=== PATIENT | male | born 1985 | race Caucasian/White ===

== ENCOUNTER 2019-11-19 20:51 | Emergency (ER) | payer MEDICAID ==
[~2019-11-19] VITALS: Ht 175.3 cm; Wt 117.9 kg
[2019-11-19 21:05] VITALS: BP 133/70
--- NOTE | 2019-11-19 21:05 | NUR ---
PT AMBULATED INTO ER. PLACED IN WHEEL CHAIR INTO ER AND PUT ON OF IN BECKWITH.
--- NOTE | 2019-11-19 21:26 | NUR ---
PT WHEEL CHAIR ASSISTED TO BED 3. AMBULATED FROM CHAIR TO BED.
--- NOTE | 2019-11-19 21:35 | NUR ---
PT ASSSESSMENT COMPLETE. PT ATTACHED TO MONITORING SYSTEM. BEDRAIL X2 UP. WILL CONTINUE TO MONITOR
--- NOTE | 2019-11-19 21:35 | NUR ---
DR CALZADA EVALUATING PT AT BEDSIDE
[2019-11-19] MEDS ORDERED: PANTOPRAZOLE 40 MG INJ VIAL IVP ONE (21:55)
[2019-11-19] MEDS ORDERED: ONDANSETRON 4 MG/2 ML VIAL IVP ONE (21:55)
[2019-11-19] MEDS ORDERED: NACL 0.9% 1,000 ML IV ONE (21:55)
--- NOTE | 2019-11-19 22:05 | NUR ---
TO XRAY VIA W/C
[2019-11-19 22:16] LABS: BASOPHILS % (AUTO) 0.4 % (0.0-2.0); EOSINOPHILS # (AUTO) 0.3 K/uL (0-0.4); EOSINOPHILS % (AUTO) 2.5 % (0.0-4.0); HEMOGLOBIN 14.2 g/dL (12.0-18.0); LYMPHOCYTES # (AUTO) 1.6 K/uL (2.0-11.5); LYMPHOCYTES % (AUTO) 14.7 % (20.5-51.1); MEAN CORPUSCULAR HEMOGLOBIN 29 pg (27-31); MEAN CORPUSCULAR HGB CONC 33 g/dL (33-37); MEAN CORPUSCULAR VOLUME 86.5 fL (80-94); MONOCYTES # (AUTO) 1.1 K/uL (0.8-1.0); NEUTROPHILS # (AUTO) 8.1 K/uL (1.8-7.7); NEUTROPHILS % (AUTO) 72.4 % (42.2-75.2); PLATELET COUNT (AUTO) 305 K/uL (140-450); RED BLOOD CELL COUNT(AUTO) 4.96 MIL/uL (4.20-6.10); RED CELL DISTRIBUTION WIDTH 13.9 % (11.6-13.7); WHITE BLOOD COUNT (AUTO) 11.2 K/uL (4.8-10.8)
[2019-11-19 22:26] LABS: CARBON DIOXIDE 24.2 mmol/L (21-32); CHLORIDE 107 mmol/L (98-107); CREATININE 0.9 mg/dL (0.7-1.3); GFR ARICAN-AMERICAN 123 mL/min (>90); GLUCOSE 91 mg/dL (74-106); POTASSIUM 3.2 mmol/L (3.5-5.1); SODIUM SERUM 144 mmol/L (136-145); UREA NITROGEN, BLOOD 24 mg/dL (7-18)
--- NOTE | 2019-11-19 22:34 | NUR ---
EKG PERFORMED AT BEDSIDE
[2019-11-19 22:45] LABS: ALBUMIN 3.9 g/dL (3.4-5.0); ASPARTATE AMINOTRANSFERASE 27 U/L (15-37); TOTAL BILIRUBIN 0.7 mg/dL (0.0-1.0)
[2019-11-19 22:46] LABS: ACETAMINOPHEN < 0.5 ug/ml (10-30); SALICYLATE < 2.8 mg/dL (2.8-20.0)
--- NOTE | 2019-11-19 23:11 | NUR ---
URINE SPECIMEN COLLECTED
[2019-11-19 23:33] LABS: BARBITURATE, URINE NEG. ng/ml (NEG <=200); BENZODIAZEPINE, URINE NEG. ng/mL (NEG <=200); CANNABINOID, URINE NEG. ng/mL (NEG <=50); COCAINE, URINE NEG. ng/mL (NEG <=300); OPIATE, URINE NEG. ng/mL (NEG <=2000); PHENCYCLIDINE SCREEN,URINE NEG. ng/mL (NEG <=25)
--- NOTE | 2019-11-20 00:08 | NUR ---
PT SEEN WITH EYES CLOSED. VISBLE CHEST RISE AND FALL NOTED. WILL CONTINUE TO MONITOR.
--- NOTE | 2019-11-20 00:30 | NUR ---
PT ROADTESTED. STEADY GAIT OBSERVED.
[2019-11-20 00:45] VITALS: BP 107/58
== END 2019-11-20 00:52 | disposition home or self-care (01) ==
LOC: MED 20:51 → EDBD 20:51 → MED 11-20 00:52
DX: F15.10 Other stimulant abuse, uncomplicated (principal); Z98.890 Other specified postprocedural states; Z88.5 Allergy status to narcotic agent; Z88.6 Allergy status to analgesic agent; Z59.0 Homelessness
CPT/HCPCS: 36415; 74022; 80053; 80305; 85025; 93005; 96361; 96374; 96375; 99284; C9113; G0480; G0482; J2405; J7030

== ENCOUNTER 2020-08-16 23:05 | Emergency (ER) | payer SELFPAY ==
[~2020-08-16] VITALS: Ht 172.7 cm; Wt 95.3 kg
--- NOTE | 2020-08-16 23:12 | NUR ---
BIB WHEELCHAIR TO ER BED 5
[2020-08-16 23:19] VITALS: BP 129/79
--- NOTE | 2020-08-16 23:19 | NUR ---
DR. LYLES AT BEDSIDE EVALUATING PT.
--- NOTE | 2020-08-16 23:41 | NUR ---
XRAY AT BEDSIDE.
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
[2020-08-17] MEDS: KETOROLAC 60 MG/2 ML VIAL IM ONE (00:08)
[2020-08-17] MEDS ORDERED: LIDOCAINE/EPI 1% 1:100000 20 ML VIAL INJ ONE (01:19)
[2020-08-17] MEDS: LIDOCAINE/EPI 1% 1:100000 20 ML VIAL INJ ONE (01:35)
--- NOTE | 2020-08-17 04:07 | NUR ---
PT ASLEEP, HOB ELEVATED. CHEST RISE AND FALL NOTED. NO NEW CONCERNS AT THIS TIME. PT ATTACHED TO NET APPLICATION SUPPORT SPECIALIST AND PULSE OXIMETRY. BED LOCKED AND IN LOWEST POSITION, SIDE RAIL UPX1. WILL CONTINUE TO MONITOR.
[2020-08-17 05:11] VITALS: BP 133/79
--- NOTE | 2020-08-17 05:12 | NUR ---
Patient discharged with v/s stable. Written and verbal after care instructions given and explained. Patient verbalized understanding. Ambulatory with steady gait. All questions addressed prior to discharge. Advised to follow up with PMD.
== END 2020-08-17 05:05 | disposition home or self-care (01) ==
LOC: MED 23:05
DX: S51.812A Laceration without foreign body of left forearm, initial encounter (principal); S80.10XA Contusion of unspecified lower leg, initial encounter; Z88.6 Allergy status to analgesic agent; Z88.5 Allergy status to narcotic agent; Z88.8 Allergy status to other drugs, medicaments and biological substances; X58.XXXA Exposure to other specified factors, initial encounter; Y93.34 Activity, bungee jumping; Y92.89 Other specified places as the place of occurrence of the external cause; Y99.8 Other external cause status
CPT/HCPCS: 12001; 73060; 73090; 73590; 90471; 90715; 96372; 99284; J1885; J2001; Q0092

== ENCOUNTER 2020-08-25 14:10 | Emergency (ER) | payer SELFPAY ==
[~2020-08-25] VITALS: Ht 174 cm; Wt 100.7 kg
[2020-08-25 14:13] VITALS: BP 141/81
== END 2020-08-25 14:51 | disposition left against medical advice (07) ==
LOC: MED 14:10
DX: S41.112D Laceration without foreign body of left upper arm, subsequent encounter (principal); X58.XXXD Exposure to other specified factors, subsequent encounter; Z53.21 Procedure and treatment not carried out due to patient leaving prior to being seen by health care provider

== ENCOUNTER 2021-01-03 09:27 | Emergency (ER) | payer MEDICAID ==
[~2021-01-03] VITALS: Ht 175.3 cm; Wt 95.3 kg
[2021-01-03 09:28] VITALS: BP 127/69
--- NOTE | 2021-01-03 09:28 | NUR ---
BIBA TAKEN TO BED 4
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
[2021-01-03] MEDS ORDERED: PENI-321 PO (09:38)
--- NOTE | 2021-01-03 09:45 | NUR ---
DR. ELIAS IS EVALUATING PATIENT AT BEDSIDE.
--- NOTE | 2021-01-03 09:58 | NUR ---
SIGNATURE OBTAINED FOR TDAP VACCINE CONSENT FORM.
[2021-01-03] MEDS ORDERED: MORPHINE SULFATE 2 MG/ML SYR IVP ONE (10:15)
[2021-01-03] MEDS ORDERED: ONDANSETRON 4 MG/2 ML VIAL IVP ONE (10:15)
[2021-01-03] MEDS ORDERED: MORPHINE SULFATE 2 MG/ML SYR ONE (10:16)
--- NOTE | 2021-01-03 10:25 | NUR ---
[facility] TRANSPORTED PATIENT VIA GURNEY TO RAD. ACCOMPANIED BY RN PER DR. ELIAS REQUEST AFTER MORPHINE ADMINISTRATION.
--- NOTE | 2021-01-03 11:15 | NUR ---
Pt returned from x-ray.
--- NOTE | 2021-01-03 11:45 | NUR ---
DR. ELIAS AT BEDSIDE
--- NOTE | 2021-01-03 11:58 | NUR ---
EMT AT BEDSIDE FOR WOUND CARE.
--- NOTE | 2021-01-03 12:00 | NUR ---
PT PROVIDED WITH XL SHIRT BY SECURITY STAFF.
--- NOTE | 2021-01-03 12:10 | NUR ---
PT PROVIDED WITH MEGAN CRACKERS, JUICE, JELLO, PUDDING PER REQUEST PRIOR TO DISCHARGE.
[2021-01-03 12:15] VITALS: BP 151/72
== END 2021-01-03 12:15 | disposition home or self-care (01) ==
LOC: MED 09:27
DX: S80.11XA Contusion of right lower leg, initial encounter (principal); S80.12XA Contusion of left lower leg, initial encounter; S00.83XA Contusion of other part of head, initial encounter; S50.811A Abrasion of right forearm, initial encounter; S50.812A Abrasion of left forearm, initial encounter; S00.01XA Abrasion of scalp, initial encounter; J45.909 Unspecified asthma, uncomplicated; Z88.5 Allergy status to narcotic agent; Z88.6 Allergy status to analgesic agent; Z88.8 Allergy status to other drugs, medicaments and biological substances; Z90.49 Acquired absence of other specified parts of digestive tract; Y04.2XXA Assault by strike against or bumped into by another person, initial encounter; Y93.89 Activity, other specified; Y92.830 Public park as the place of occurrence of the external cause; Y99.8 Other external cause status
CPT/HCPCS: 70110; 70450; 71045; 73090; 73140; 73590; 90471; 90715; 96374; 96375; 99284; J2270; J2405

== ENCOUNTER 2021-04-30 13:20 | Emergency (ER) | payer MEDICAID ==
[~2021-04-30] VITALS: Ht 175.3 cm; Wt 83.9 kg
[~2021-04-30 13:20] MED LIST: PENI-321 PO
[2021-04-30 13:28] VITALS: BP 121/73
--- NOTE | 2021-04-30 13:45 | NUR ---
36 Y/O M BIBA FROM HOME, PT C/O LUQ ABD PAIN, N/V/D FOR 3 DAYS. PT STATES THIS MORNING HE STARTED HAVING ANXIETY AND "DRANK 3 WANDA COBRA TALL CANS AND 6 MONSTER ENERGY DRINKS". PT STATES HE ALSO HAS BLOOD IN HIS EMESIS; SKIN IS PINK/WARM/DRY; AAOX4 WITH EVEN AND STEADY GAIT; LUNGS CLEAR BL; HR EVEN AND REGULAR; PT DENIES ANY FEVER, CP, SOB, OR COUGH AT THIS TIME; PATIENT STATES PAIN OF 9/10 AT THIS TIME; VSS; PATIENT POSITIONED FOR COMFORT; HOB ELEVATED; BEDRAILS UP X2; BED DOWN. ER MD MADE AWARE OF PT STATUS. PMH: GALLSTONES, ANXIETY, SCHIZOPHRENIA, BIPOLAR, ASTHMA ALLERGY: NORCO, ASPIRIN, TYLENOL (HIVES)
[2021-04-30] MEDS ORDERED: ONDANSETRON 4 MG/2 ML VIAL IVP ONE (14:20)
[2021-04-30] MEDS ORDERED: NACL 0.9% 1,000 ML IV ONE (14:20)
--- NOTE | 2021-04-30 14:30 | NUR ---
LABS WERE DRAWN AND GIVEN TO ROSA GUTIÉRREZ
[2021-04-30] MEDS ORDERED: KETOROLAC 15 MG/ML VIAL IVP ONE (14:40)
[2021-04-30 14:47] LABS: BASOPHILS # (AUTO) 0.1 K/uL (0.00-0.22); BASOPHILS % (AUTO) 0.7 % (0.0-2.0); EOSINOPHILS # (AUTO) 0.3 K/uL (0-0.4); EOSINOPHILS % (AUTO) 2.2 % (0.0-4.0); HEMATOCRIT 47.6 % (36-52); HEMOGLOBIN 15.9 g/dL (12.0-18.0); LYMPHOCYTES # (AUTO) 1.4 K/uL (2.0-11.5); LYMPHOCYTES % (AUTO) 10.5 % (20.5-51.1); MEAN CORPUSCULAR HEMOGLOBIN 29 pg (27-31); MEAN CORPUSCULAR HGB CONC 34 g/dL (33-37); MEAN CORPUSCULAR VOLUME 86.5 fL (80-94); MONOCYTES # (AUTO) 1.2 K/uL (0.8-1.0); NEUTROPHILS # (AUTO) 10.4 K/uL (1.8-7.7); NEUTROPHILS % (AUTO) 77.6 % (42.2-75.2); PLATELET COUNT (AUTO) 373 K/uL (140-450); RED BLOOD CELL COUNT(AUTO) 5.51 MIL/uL (4.20-6.10); WHITE BLOOD COUNT (AUTO) 13.5 K/uL (4.8-10.8)
[2021-04-30 15:09] LABS: ANION GAP 9.2 (8-16); CARBON DIOXIDE 28.4 mmol/L (21-32); POTASSIUM 3.6 mmol/L (3.5-5.1)
--- NOTE | 2021-04-30 15:12 | NUR ---
Pt to CT via wheelchair
[2021-04-30 15:16] LABS: ALBUMIN 3.6 g/dL (3.4-5.0); BILIRUBIN,DIRECT 0.1 mg/dL (0.0-0.3); MAGNESIUM 2.1 mg/dL (1.8-2.4); PHOSPHORUS 2.7 mg/dL (2.5-4.9); TOTAL BILIRUBIN 0.6 mg/dL (0.0-1.0)
[2021-04-30] MEDS ORDERED: ONDA-24 SL (16:53)
[2021-04-30 17:41] VITALS: BP 121/73
--- NOTE | 2021-04-30 17:42 | NUR ---
Patient discharged with v/s stable. Written and verbal after care instructions given and explained. Patient alert, oriented and verbalized understanding of instructions. Ambulatory with steady gait. All questions addressed prior to discharge. ID band removed. Patient advised to follow up with PMD. Rx of ONDANSETRON given. Patient educated on indication of medication including possible reaction and side effects. Opportunity to ask questions provided and answered.
== END 2021-04-30 17:42 | disposition home or self-care (01) ==
LOC: MED 13:20
DX: F10.129 Alcohol abuse with intoxication, unspecified (principal); R11.2 Nausea with vomiting, unspecified; R10.12 Left upper quadrant pain; F17.210 Nicotine dependence, cigarettes, uncomplicated; E11.9 Type 2 diabetes mellitus without complications; J45.909 Unspecified asthma, uncomplicated; F31.9 Bipolar disorder, unspecified; F20.9 Schizophrenia, unspecified; Z88.6 Allergy status to analgesic agent; Z88.5 Allergy status to narcotic agent
CPT/HCPCS: 36415; 74176; 80048; 80076; 83690; 83735; 84100; 85025; 96361; 96374; 96375; 99284; J1885; J2405; J7030